=== PATIENT | male | born 1965 ===

== ENCOUNTER 2017-03-05 22:50 | Emergency (ER) | payer OTHER | END 2017-03-06 08:37 | disposition home or self-care (01) | LOC: ER 22:50 | DX: S39.012A Strain of muscle, fascia and tendon of lower back, initial encounter (principal); S00.93XA Contusion of unspecified part of head, initial encounter; I25.2 Old myocardial infarction; F17.200 Nicotine dependence, unspecified, uncomplicated; Z88.0 Allergy status to penicillin; Z91.048 Other nonmedicinal substance allergy status; W19.XXXA Unspecified fall, initial encounter | CPT/HCPCS: 70450; 71020; 72131; 96372; 99284; J1170; J2360 ==